=== PATIENT | female | born 1970 | race Caucasian/White ===

== ENCOUNTER 2022-04-18 04:40 | Emergency (ER) | payer OTHER ==
[2022-04-18 05:07] VITALS: BP 108/69; PULSE 70; O2SAT 99
--- NOTE | 2022-04-18 05:41 | ERPHSYRPT ---
- History of Present Illness Time Seen by Provider: 04/18/22 05:00 Source: patient, paraprofessional interpreter Patient Subjective Stated Complaint: pt states "I got up to use the restroom and blood was squirting from my knee. I have carcinoma. 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 Patient has a history of knee sarcoma. The sarcoma is currently being treated by her oncologist. Patient also has a history of lung cancer for which she is currently receiving chemotherapy. Patient states she was at home this morning. Patient awoke to go to the bathroom and observed her left knee was bleeding. Patient states it appeared to be an arterial bleed. Upon arrival to our ED the bleeding had stopped. There was a small wound at the surface of her left knee sarcoma which apparently caused the bleeding. Patient felt well otherwise. Patient was asymptomatic. No dizziness. No near syncope no syncope. Patient denies weakness. Patient is not tachycardic. No heart palpitations. Patient feels well otherwise. There is a second lesion proximal to her involved knee which appears to be a second focus of sarcoma. Patient's oncologist is aware of this area and this is also being attended to. Patient currently asymptomatic. Vital stable. at bedside. They voiced no other complaints or concerns at this time. Timing/Duration: today Severity: mild Modifying Factors: Improves With: other (Pressure resolved bleeding) Associated Symptoms: denies symptoms Allergies/Adverse Reactions: No Known Drug Allergies Allergy (Unverified 04/18/22 04:47) Home Medications: Alectinib HCl [Alecensa] 150 mg pe PO DAILY 04/18/22 [History] Atorvastatin Calcium 10 mg PO DAILY 04/18/22 [History] Furosemide [Lasix] 10 mg PO DAILY 04/18/22 [History] PARoxetine HCl [Paxil] 10 mg PO DAILY 06/09/22 [History] Hx Tetanus, Diphtheria Vaccination/Date Given: No Hx Influenza Vaccination/Date Given: No Hx Pneumococcal Vaccination/Date Given: No Travel Risk - International Travel Have you traveled outside of the country in past 3 weeks: No - Coronavirus Screening Are you exhibiting any of the following symptoms?: No Close contact with a COVID-19 positive Pt in past 14-21 Days: No - Vaccine Status Have you recieved a Covid-19 vaccination: Yes [employer]: Moderna - Vaccination Dates Date of 2cond Vaccination (if applicable): unknown - Review of Systems Constitutional: No Symptoms, No Fever, No Chills Eyes: No Symptoms Ears, Nose, & Throat: No Symptoms Respiratory: No Symptoms, No Cough, No Dyspnea Cardiac: No Symptoms, No Chest Pain, No Edema, No Syncope Abdominal/Gastrointestinal: No Symptoms, No Abdominal Pain, No Nausea, No Vomiting, No Diarrhea Genitourinary Symptoms: No Symptoms, No Dysuria Musculoskeletal: No Symptoms, No Back Pain, No Neck Pain Skin: No Symptoms, No Rash Neurological: No Symptoms, No Dizziness, No Focal Weakness, No Sensory Changes Psychological: No Symptoms Endocrine: No Symptoms Hematologic/Lymphatic: No Symptoms Immunological/Allergic: No Symptoms All Other Systems: Reviewed and Negative - Past Medical History Pertinent Past Medical History: Yes Neurological History: No Pertinent History ENT History: No Pertinent History Cardiac History: High Cholesterol Respiratory History: Lung Cancer Endocrine Medical History: No Pertinent History Musculoskeletal History: No Pertinent History GI Medical History: No Pertinent History History: No Pertinent History Psycho-Social History: No Pertinent History Female Reproductive Disorders: No Pertinent History - Past Surgical History Past Surgical History: Yes Neuro Surgical History: No Pertinent History Cardiac: No Pertinent History Respiratory: No Pertinent History Gastrointestinal: No Pertinent History Genitourinary: No Pertinent History Musculoskeletal: Orthopedic Surgery Female Surgical History: Section Other Surgical History: section x2, disc removal in back - Social History Smoking Status: Former smoker Exposure to second hand smoke: Yes Drug Use: none Patient Lives Alone: No - Nursing Vital Signs Nursing Vital Signs: Initial Vital Signs Temperature 97.9 F 04/18/22 04:51 Pulse Rate 70 04/18/22 04:51 Respiratory Rate 16 04/18/22 04:51 Blood Pressure 108/69 04/18/22 04:51 O2 Sat by Pulse Oximetry 99 04/18/22 04:51 Pain Scale Pain Intensity 2 - Physical Exam General Appearance: no apparent distress, alert Eye Exam: PERRL/EOMI, eyes nml inspection Ears, Nose, Throat Exam: normal ENT inspection, TMs normal, pharynx normal, moist mucous membranes Neck Exam: normal inspection, non-tender, supple, full range of motion Respiratory Exam: normal breath sounds, lungs clear, airway intact, No respiratory distress Cardiovascular Exam: regular rate/rhythm, normal heart sounds, normal peripheral pulses Gastrointestinal/Abdomen Exam: soft, normal bowel sounds, No tenderness, No mass Back Exam: normal inspection, normal range of motion, No CVA tenderness, No vertebral tenderness Extremity Exam: normal inspection, normal range of motion, pelvis stable, other (Left knee presents with an existing sarcoma. The area of bleed was observed no active bleeding. Extremity neurovascular tact distally. Compartments are soft. Cap refill less than 2 seconds) Neurologic Exam: alert, oriented x 3, cooperative, normal mood/affect, nml cerebellar function, nml station & gait, sensation nml, No motor deficits Skin Exam: normal color, warm, dry, No rash Lymphatic Exam: No adenopathy SpO2 Interpretation: normal SpO2: 99 O2 Delivery: Room Air - Course Nursing assessment & vital signs reviewed: Yes - Progress Progress: improved Progress Note: Patient asymptomatic. Vital stable. Patient not tachycardic or hypotensive. No active bleeding. No indication for additional work-up at this time. Patient advised that it would likely rebleed. Patient provided supplies for home including 4 x 4's and Artem wrap in the event that the wound rebleeds. Patient agrees to follow-up with primary care doctor within 48 hours for evaluation. Patient voices no other complaints or concerns at this time. Patient transition from sit to stand and ambulated just prior to discharge and remained asymptomatic. Portions of this note were created with voice recognition technology. There may be grammatical, spelling, punctuation or sound alike errors 04/18/22 05:45 Counseled pt/family regarding: diagnosis, need for follow-up - Departure Departure Disposition: Home Clinical Impression: Hemorrhage from wound Condition: Stable Critical Care Time: No Referrals: REINALDO JASSO Jr. [Primary Care Provider] - Follow up/PCP as directed Instructions: Wound Care (DC) Additional Instructions: Discharge/Care Plan NEGIN SALAZAR was seen on 06/09/22 in the Emergency Room. The patient was counseled regarding Diagnosis,Lab results, Imaging studies, need for follow up and when to return to the Emergency Room. Prescriptions given: Discharge Note I have spoken with the patient and/or caregivers. I have explained the patient's condition, diagnosis and treatment plan based on the information available to me at this time. I have answered the patient's and/or caregiver's questions and addressed any concerns. The patient and/or caregivers have as good understanding of the patient's diagnosis, condition and treatment plan as can be expected at this point. The vital signs have been stable. The patient's condition is stable and appropriate for discharge from the emergency department. The patient will pursue further outpatient evaluation with the primary care physician or other designated or consulting physician as outlined in the discharge instructions. The patient and/or caregivers are agreeable to this plan of care and follow-up instructions have been explained in detail. The patient and/or caregivers have received these instruction. The patient/and or caregivers are aware that any significant change in condition or worsening of symptoms should prompt an immediate return to this or the closest emergency department or call 911.
== END 2022-04-18 05:53 | disposition home or self-care (01) ==
LOC: ED 04:40
DX: S81.002A Unspecified open wound, left knee, initial encounter (principal); R58 Hemorrhage, not elsewhere classified; C76.52 Malignant neoplasm of left lower limb
CPT/HCPCS: 99283